=== PATIENT | female | born 1960 | race African-American/Black ===

== ENCOUNTER 2017-02-24 17:59 | Emergency (ER) | payer MEDICAID, OTHER ==
[~2017-02-24] VITALS: Ht 167.6 cm; Wt 120.0 kg
[2017-02-24] MEDS ORDERED: ALBU2.5V13 IH (18:08)
[2017-02-24] MEDS ORDERED: GABA-531 PO (18:08)
[2017-02-24] MEDS ORDERED: CYCLOBENZAPRINE 10MG TABLET PO ONE (18:45)
[2017-02-24] MEDS ORDERED: KETOROLAC 60MG/2ML VIAL IM ONE (18:45)
[2017-02-24 20:41] VITALS: BP 119/68
== END 2017-02-24 20:47 | disposition home or self-care (01) ==
LOC: ER 17:59
DX: M25.562 Pain in left knee (principal); M25.512 Pain in left shoulder; M54.9 Dorsalgia, unspecified; J45.909 Unspecified asthma, uncomplicated; V89.2XXA Person injured in unspecified motor-vehicle accident, traffic, initial encounter; Y93.89 Activity, other specified; Y92.89 Other specified places as the place of occurrence of the external cause; Y99.8 Other external cause status; Z98.890 Other specified postprocedural states
CPT/HCPCS: 73562; 96372; 99284; J1885